=== PATIENT | female | born 1965 ===

== ENCOUNTER 2023-01-24 15:05 | Emergency (ER) | payer MEDICAID, SELFPAY ==
[2023-01-24] VITALS (8 sets, daily range): BP systolic 104–174; BP diastolic 60–91; PULSE 58–111; RESP 12–18; TEMP 36.1–36.8; O2SAT 98–100; BMI 22.7
--- NOTE | 2023-01-24 15:09 | ED_ITS ---
HPI - General Adult General Chief complaint: Vaginal Bleeding Stated complaint: Bleeding alot from private Time Seen by Provider: 01/24/23 16:31 Source: patient Mode of arrival: ambulatory Limitations: no limitations History of Present Illness HPI narrative: This is a 57-year-old female history of hypertension, diabetes presenting to the emergency with heavy vaginal bleeding for the past 3 hours, patient reports that she had intercourse for the 1st time in 60 years and started bleeding heavily, also reporting suprapubic pressure, this is never happened to her before. No known bleeding disorders. Family history of endometrial cancer. Patient is not a smoker. Last Pap smear last urine was within normal limits. Patient reports passing large clots and she can not count the number of pads she has been thr ough within the past hour so. Patient's last meal was this morning where she had something to drink but has not eaten ever since. Patient also reports fatigue, malaise and lightheadedness. Denies chest pain, shortness of breath, nausea, vomiting, abdominal pain, headache, vision changes Related Data Previous Rx's Medication Instructions Recorded morphine 15 mg immediate release 15 mg PO Q6H PRN pain 5 days #10 01/24/23 tablet tabs Allergies Allergy/AdvReac Type Severity Reaction Status Date / Time benztropine Allergy Facial Verified 01/24/23 15:18 Swelling canagliflozin [From Invokana] Allergy Rash Verified 01/24/23 15:18 Penicillins [PCN] Allergy Facial Verified 01/24/23 15:18 Swelling trazodone Allergy Rash Verified 01/24/23 15:11 vancomycin Allergy Rash Verified 01/24/23 15:18 Review of Systems Review of Systems: Constitutional : No Weight loss, No Fever, No Chills, + Fatigue, + Malaise ENT/Mouth : No sore throat, No Rhinorrhea Eyes: No Eye Pain, No Swelling, No Redness Cardiovascular : No Chest Pain, No SOB, No Dyspnea on Exertion, No Orthopnea, No Edema, No Palpitations Respiratory : No Cough, No Sputum, No Wheezing Gastrointestinal : No Nausea, No Vomiting, No Diarrhea, No Constipation, No abdominal Pain, No Hematochezia, No Melena Genitourinary : No Dysuria, No Urinary Frequency, No Hematuria, + heavy vaginal bleeding Musculoskeletal : No joint pain, No Myalgias, No Joint Swelling Skin : No Skin Lesions, No rash Neuro : + Weakness, No Numbness, + Dizziness, No Headache Psych : No Anxiety/Panic, No Depression All other systems reviewed and are negative Yes all other systems are reviewed and are negative [facility] Past Medical History Attestation statement: The following information was validated with the patient. Source: old records reviewed and nursing notes reviewed Social History Social History Smoked in Last 30 Days: No Use of substances other than those prescribed or required for medical reasons: No Advance Directives: Yes Advance Directives on File: No Physical Exam ED Vital Signs: Vital Signs - 24 hr 01/24/23 15:08 01/24/23 17:10 01/24/23 17:14 Temperature 97 F 98.1 F 98.2 F Pulse Rate 111 H 58 58 Respiratory Rate 18 16 16 Blood Pressure 127/91 H 104/60 112/60 Pulse Oximetry 98 Oxygen Delivery Method Room Air 01/24/23 17:26 01/24/23 17:29 01/24/23 17:54 Temperature 98.0 F 98.0 F 97.7 F Pulse Rate 59 58 58 Respiratory Rate 13 13 12 Blood Pressure 136/73 136/73 173/76 H Pulse Oximetry Oxygen Delivery Method 01/24/23 18:21 01/24/23 18:28 Temperature 97.7 F 97.7 F Pulse Rate 59 62 Respiratory Rate 15 17 Blood Pressure 174/85 H 150/81 H Pulse Oximetry 100 Oxygen Delivery Method Room Air BMI result Body Mass Index 22.7 vss Appearance: Alert.? Oriented X3.? No acute distress.? Head: Normocephalic, atraumatic, no step-offs or deformities Eyes: Pupils equal, round and reactive to light.? ENT: Pharynx normal.??External ears normal, TMs normal bilaterally and EAC's normal. No pain with manipulation of external ears bilaterally. No mastoid tenderness. Neck: Normal inspection.? Neck supple.? CVS: Normal heart rate and rhythm.? Pulses normal.? Respiratory: No respiratory distress.? Breath sounds normal.? Abdomen: Soft and nontender.? Skin: Skin warm and dry.? + Pale skin color.? Normal skin turgor.? Sensative exam: + 3 cm linear vaginal laceration at the 3 oclock position heavily bleeding. Large blood clots w/ in vaginal canal. Extremities: No lower extremity edema.? No calf ttp. 5/5 strength to bilateral upper and lower extremities Neuro: Oriented X 3.? No motor deficit.? No sensory deficit. CN 2-12 intact Course Course Course Narrative: RME- 57 year old female presents for evaluation of vaginal bleeding. Patient reports bleeding immediately after sexual intercourse. Reports her first sexual encounter in 6 years. Denies use of blood thinners. Vitals are stable. Patient has had a hysterectomy. Denies pain. Plan to hold off on labs and/or imaging pending physical evaluation. Reevaluation(s) Reevaluation #1: Heavy vaginal bleeding prompted me to call in OBGYN Dr. Marcelino who requested packing in place, 2 units PRBC and to call OR staff in for possible vaginal laceration case. Time: 16:45 Reevaluation #2: Patient's CBC with hemoglobin of 11.3, hematocrit 33.2 likely secondary to acute blood loss, 2nd CBC pending however patient did receive 2 units of packed red blood cells and tolerated them well. Chemistry with no acute findings requiring intervention. Beta hCG negative. COVID negative. Vital signs are stable at this time. Laceration was repaired by Dr. Marcelino at the bedside with local anesthesia lidocaine. Patient tolerated procedure well. Reports no pain at this time, she states she is comfortable. Upon re-evaluation there is no bleeding. She has taken morphine in the past however does not feel like she needs it will discharge her home with a small supply of it if she does experience pain at jeff [facility]. I will have her follow-up with OBGYN within the next 2-3 days. I explained to her she should not have intercourse until cleared by OBGYN. I answered all questions. Consent for vaginal laceration and blood in patient chart. At this time patient to be discharged home with prompt PCP and OBGYN follow-up instructed her to return with any new or worsening symptoms. Time: 18:46 Medical Decision Making Medical Decision Making [facility] Narrative: 1708 57 year old female presents w/ heavy vaginal bleeding X 3 hours. HX of hysterectomy due to menorrhagia. Physical exam significant for + 3 cm linear vaginal laceration at the 3 oclock position heavily bleeding. Large blood clots w/ in vaginal canal. Patient also pale and diaphoretic. Concerns for vaginal laceration likely secondary to vaginal atrophy postmenopausal. Will rule out electrolyte abnormalities, anemia secondary to acute blood loss. Other differentials include endometrial cancer. Plan will do a pelvic exam obtain labs, type and screen, due to patient's presentation the amount of blood loss in such a short period of time 2 units uncross matched blood will be ordered. I did go over risks versus benefits with patient she gave me verbal consent will sign consent as well that will go in patient's chart. Differential Diagnosis Differential Diagnoses: The differential diagnosis associated with the presentation includes Concerns for vaginal laceration likely secondary to vaginal atrophy postmenopausal. Will rule out electrolyte abnormalities, anemia secondary to acute blood loss. Other differentials include endometrial cancer. Admission/Observation Consideration of admission/observation: Escalation of care including admission/observation considered Likely Consult Healthcare Provider Management of the patient was discussed with: Aircraft De Icer Installer (ALICE) Lab Data MDM Lab Attestation statement: I reviewed the patient's lab results. 01/24/23 16:55 01/24/23 16:55 Labs: Lab Results 01/24/23 01/24/23 01/24/23 Range/Units 16:55 16:55 17:00 WBC 9.7 (4.8-10.8) X10*3/uL RBC 3.61 L (4.20-5.50) X10*6/uL Hgb 11.3 L (12.0-16.0) g/dl Hct 33.2 L (37.0-47.0) % MCV 92.0 (80.0-98.0) fL MCH 31.3 (27.0-33.0) pg MCHC 34.0 (31.0-35.0) g/dl RDW 11.9 (11.0-16.0) % Plt Count 241 (160-400) X10*3/uL MPV 9.0 L (9.4-12.3) fL Immature Gran % (Auto) 0.2 (0.0-0.4) % Neut % (Auto) 63.3 (45-73) % Lymph % (Auto) 28.4 (20-40) % Mccormick % (Auto) 6.8 (2-11) % Eos % (Auto) 0.8 (0-4) % Baso % (Auto) 0.5 (0-2) % Lymph # (Auto) 2.8 (1.2-4.9) X10*3/uL Mccormick # (Auto) 0.7 (0.1-1.2) X10*3/uL Eos # (Auto) 0.1 (0.0-0.4) X10*3/uL Baso # (Auto) 0.1 (0.0-0.2) X10*3/uL Abs Immat Gran (auto) 0.02 (0.00-0.03) X10*3/uL Absolute Neuts (auto) 6.2 (2.0-8.3) x10*3/uL Absolute Nucleated RBC 0.000 (0.0-0.012) X10*3/uL Nucleated RBC % (auto) 0.0 (0.0-0.2) /100WBC Sodium 140 (135-145) mmol/L Potassium 4.1 (3.3-5.1) mmol/L Chloride 108 (96-108) mmol/L Carbon Dioxide 21 L (22-29) mmol/L Anion Gap 15 (12-20) BUN 15 (9-16) mg/dL Creatinine 1.00 (0.5-1.4) mg/dL Estim Creat Clear Calc 47.3 Estimated GFR 57 Random Glucose 185 H (60-115) mg/dL Calcium 9.4 (8.4-10.2) mg/dL Magnesium 2.2 (1.6-2.6) mg/dL Total Bilirubin 0.5 (0.0-1.0) mg/dL AST 25 (5-31) U/L ALT 24 (0-31) U/L Alkaline Phosphatase 87 (39-117) U/L Total Protein 6.1 L (6.5-8.0) g/dL Albumin 3.9 (3.5-5.0) g/dL Beta HCG, Quant mIU/mL COVID-19 (SCOTT) (Negative) COVID-19 Clin Com Blood Type O Positive Antibody Screen NEGATIVE Crossmatch See Detail 01/24/23 01/24/23 Range/Units 17:01 17:11 WBC (4.8-10.8) X10*3/uL RBC (4.20-5.50) X10*6/uL Hgb (12.0-16.0) g/dl Hct (37.0-47.0) % MCV (80.0-98.0) fL MCH (27.0-33.0) pg MCHC (31.0-35.0) g/dl RDW (11.0-16.0) % Plt Count (160-400) X10*3/uL MPV (9.4-12.3) fL Immature Gran % (Auto) (0.0-0.4) % Neut % (Auto) (45-73) % Lymph % (Auto) (20-40) % Mccormick % (Auto) (2-11) % Eos % (Auto) (0-4) % Baso % (Auto) (0-2) % Lymph # (Auto) (1.2-4.9) X10*3/uL Mccormick # (Auto) (0.1-1.2) X10*3/uL Eos # (Auto) (0.0-0.4) X10*3/uL Baso # (Auto) (0.0-0.2) X10*3/uL Abs Immat Gran (auto) (0.00-0.03) X10*3/uL Absolute Neuts (auto) (2.0-8.3) x10*3/uL Absolute Nucleated RBC (0.0-0.012) X10*3/uL Nucleated RBC % (auto) (0.0-0.2) /100WBC Sodium (135-145) mmol/L Potassium (3.3-5.1) mmol/L Chloride (96-108) mmol/L Carbon Dioxide (22-29) mmol/L Anion Gap (12-20) BUN (9-16) mg/dL Creatinine (0.5-1.4) mg/dL Estim Creat Clear Calc Estimated GFR Random Glucose (60-115) mg/dL Calcium (8.4-10.2) mg/dL Magnesium (1.6-2.6) mg/dL Total Bilirubin (0.0-1.0) mg/dL AST (5-31) U/L ALT (0-31) U/L Alkaline Phosphatase (39-117) U/L Total Protein (6.5-8.0) g/dL Albumin (3.5-5.0) g/dL Beta HCG, Quant < 2 mIU/mL COVID-19 (SCOTT) Negative (Negative) COVID-19 Clin Com See Note Blood Type Antibody Screen Crossmatch Core Measures AMI core measures followed: Yes Measure exclusions: not indicated Critical Care Time Critical Care Time Critical Care Time: Yes Total Critical Care Time: 45 Attestation: I attest to this time spent taking care of the patient, obtaining history, physical, reviewing labs, imaging, speaking to my attending Discharge Plan Discharge Clinical Impression: Vaginal laceration, Postcoital bleeding Patient Disposition: Home, Self-Care Instructions: Laceration (ED) Additional Instructions: Take your medications as prescribed. If you were prescribed antibiotics today, it is important that you take your medication to their entirety, do not skip any doses, do not finish them early. Follow-up with your primary care provider this week. Please follow-up with your OBGYN within the next 2-3 days. Return to the emergency department with new or worsening symptoms. Such as fevers, chills, chest pain, shortness of breath, nausea, vomiting, dizziness, headache, vision changes, lethargy, bleeding through more than 2 pads an hour, In case of emergency call 911 A narcotic has been sent to your pharmacy please take this as prescribed. Do not take more than the prescribed dose. Narcotic medications can cause addiction. Please do not mix them with alcohol. Do not take them while driving or operating machinery. Do not take them with any other narcotics. Do not share them with friends or family. They can cause constipation. Take them only for severe pain. Prescriptions: New morphine 15 mg tablet 15 mg PO Q6H PRN (Reason: pain) 5 Days Qty: 10 0RF Rx Instructions: Partial Fill upon patient request. Referrals: Physician,Savage Garcia [Primary Care Provider] - 2 days Khoi Marcelino MD [Physician] - 3 days Stand Alone Forms: Work/School Release
--- NOTE | 2023-01-24 16:56 | PC.NURSE ---
pt moved to ED4 for pelvic exam. multiple providers at bedside for exam. pt appears to be having increased vaginal bleeding during exam. suction at bedside. pt appears nauseous, hypotensive. multiple large bore IVs established, blood labs sent. 2 units uncrossed blood released per verbal order md. OB consulted, potential plan to go to OR
[2023-01-24 17:04] LABS: Basophils Absolute Auto 0.1 X10*3/uL (0.0-0.2); Basophils Percent Auto 0.5 % (0-2); Eosinophils Absolute Auto 0.1 X10*3/uL (0.0-0.4); Eosinophils Percent Auto 0.8 % (0-4); Hematocrit 33.2 % (37.0-47.0); Hemoglobin 11.3 g/dl (12.0-16.0); Imm Gran Abs Auto 0.02 X10*3/uL (0.00-0.03); Imm Gran Pct Auto 0.2 % (0.0-0.4); Lymphocytes Absolute Auto 2.8 X10*3/uL (1.2-4.9); Lymphocytes Percent Auto 28.4 % (20-40); MANUAL DIFF FLAG NO; Mean Corpuscular Hemoglobin 31.3 pg (27.0-33.0); Monocytes Absolute Auto 0.7 X10*3/uL (0.1-1.2); Monocytes Percent Auto 6.8 % (2-11); Neutrophils Absolute Auto 6.2 x10*3/uL (2.0-8.3); Neutrophils Percent Auto 63.3 % (45-73); Platelet Count 241 X10*3/uL (160-400); Red Blood Count 3.61 X10*6/uL (4.20-5.50); Red Cell Distribution Width 11.9 % (11.0-16.0); White Blood Count 9.7 X10*3/uL (4.8-10.8)
--- NOTE | 2023-01-24 17:15 | PC.NURSE ---
pt BP improving with IV fluids. bleeding appears better controlled at this time. blood products infusing, pt remains awake and alert. denies pain. nausea improved
[2023-01-24 17:20] LABS: Alanine Aminotransferase 24 U/L (0-31); Albumin Level 3.9 g/dL (3.5-5.0); Alkaline Phosphatase 87 U/L (39-117); Anion Gap 15 (12-20); Aspartate Amino Transferase 25 U/L (5-31); Bilirubin Total 0.5 mg/dL (0.0-1.0); Blood Urea Nitrogen 15 mg/dL (9-16); Calcium 9.4 mg/dL (8.4-10.2); Carbon Dioxide 21 mmol/L (22-29); Chloride 108 mmol/L (96-108); Creatinine Clr Calc Pharmacy 47.3; Estimated Glomerular Filt Rate 57; Glucose Random 185 mg/dL (60-115); Magnesium 2.2 mg/dL (1.6-2.6); Potassium 4.1 mmol/L (3.3-5.1); Sodium 140 mmol/L (135-145); Total Protein 6.1 g/dL (6.5-8.0)
[2023-01-24 17:24] LABS: COVID-19 Test Negative (Negative); IDNOW Serial# 08D9AD1C
--- NOTE | 2023-01-24 17:37 | MHC.EDTECH ---
pt currently getting stitches d/t acute bleeding. will obtain second type and screen once sutures completed. rn aware
[2023-01-24 17:42] LABS: HCG Quantitative < 2 mIU/mL
--- NOTE | 2023-01-24 18:28 | P.CONOB_ITS ---
COMPUTER SYSTEMS SECURITY ADMINISTRATOR - CN: HPI Data of Consult Consult date: 01/24/23 Primary Care Provider: Unknown Physician Consult Narrative Narrative: I was consulted on Kimberly Schulz who is a 57 year old female presented emergency room 3 hours post intercourse with vaginal bleeding. The patient has been absentinant over the last 6 years. No other associated symptoms no nausea or vomiting no GI or symptoms cc:: CC: OB [facility] Social History Social History Smoked in Last 30 Days: No Use of substances other than those prescribed or required for medical reasons: No Advance Directives: Yes Advance Directives on File: No Meds Allergies Allergy/AdvReac Type Severity Reaction Status Date / Time benztropine Allergy Facial Verified 01/24/23 15:18 Swelling canagliflozin [From Invokana] Allergy Rash Verified 01/24/23 15:18 Penicillins [PCN] Allergy Facial Verified 01/24/23 15:18 Swelling trazodone Allergy Rash Verified 01/24/23 15:11 vancomycin Allergy Rash Verified 01/24/23 15:18 COMPUTER SYSTEMS SECURITY ADMINISTRATOR Physical Exam Vitals Vital signs: Temp Pulse Resp BP Pulse Ox O2 Del Method 97.7 F 59 15 174/85 H 100 Room Air 01/24/23 18:21 01/24/23 18:21 01/24/23 18:21 01/24/23 18:21 01/24/23 18:21 01/24/23 18:21 BMI result Body Mass Index 22.7 Abdomen Auscultation/Inspection/Palpation: Normal bowel sounds, Soft, Non-distended and No tenderness Female Genitalia (Pelvic) Vulva: No lesions Cervix: Cervix Surgically Absent Uterus: Uterus surgically absent Additional Comments: 5 cm laceration bleeding at the vaginal apex COMPUTER SYSTEMS SECURITY ADMINISTRATOR - Results Labs 01/24/23 16:55 01/24/23 16:55 Labs: Short CBC 01/24/23 Range/Units 16:55 WBC 9.7 (4.8-10.8) X10*3/uL Hgb 11.3 L (12.0-16.0) g/dl Hct 33.2 L (37.0-47.0) % Plt Count 241 (160-400) X10*3/uL BMP 01/24/23 16:55 Sodium 140 Potassium 4.1 Chloride 108 Carbon Dioxide 21 L BUN 15 Creatinine 1.00 Calcium 9.4 Liver Function 01/24/23 Range/Units 16:55 Total Bilirubin 0.5 (0.0-1.0) mg/dL AST 25 (5-31) U/L ALT 24 (0-31) U/L Alkaline Phosphatase 87 (39-117) U/L Albumin 3.9 (3.5-5.0) g/dL Antibody Screen Antibody Screen NEGATIVE 01/24/23 17:00 Assessment and Plan (1) Vaginal laceration: Status: Acute Plan Discussed with the patient the finding on physical exam, a bleeding 5 cm vaginal laceration, I recommended repair of vaginal laceration, discussed with the patient the risks and benefits, risks discussed with the patient include but not limited to: Bleeding, infection risk of injury to the bladder, bowel , ureter, blood vessel possible need for blood transfusion, chronic painful intercourse, the patient gave a verbal consent . Speculum was inserted 10 cc of lidocaine 2% were injected at the laceration and using 3-0 monofilament absorbable sutures the laceration was closed in a running interlocking fashion. Patient tolerated the procedure well, hemostasis verified at the the procedure Instructions given the patient to call in case of heavy bleeding, fever above 100.4, nausea vomiting and follow-up in the outpatient office within 2 weeks All questions answered, the patient verbalized understanding Time Spent With Patient Time: Total time managing care of this patient today ____ minutes.
[2023-01-24 18:33] LABS: MANUAL DIFF FLAG NO
--- NOTE | 2023-01-24 18:38 | PC.NURSE ---
blood products finished infusing. vaginal laceration closed with sutures by Dr. Marcelino at bedside. awaiting repeat cbc. pt remains without pain. partner at bedside. vss. wctm
[2023-01-24 18:45] LABS: Basophils Absolute Auto 0.1 X10*3/uL (0.0-0.2); Basophils Percent Auto 0.4 % (0-2); Eosinophils Absolute Auto 0.1 X10*3/uL (0.0-0.4); Eosinophils Percent Auto 0.4 % (0-4); Hematocrit 38.2 % (37.0-47.0); Hemoglobin 13.2 g/dl (12.0-16.0); Imm Gran Abs Auto 0.06 X10*3/uL (0.00-0.03); Imm Gran Pct Auto 0.3 % (0.0-0.4); Lymphocytes Absolute Auto 1.3 X10*3/uL (1.2-4.9); Lymphocytes Percent Auto 7.1 % (20-40); Mean Corpuscular HGB Conc 34.6 g/dl (31.0-35.0); Mean Corpuscular Volume 89.7 fL (80.0-98.0); Mean Platelet Volume 9.8 fL (9.4-12.3); Monocytes Absolute Auto 1.2 X10*3/uL (0.1-1.2); Monocytes Percent Auto 6.2 % (2-11); Neutrophils Absolute Auto 16.2 x10*3/uL (2.0-8.3); Neutrophils Percent Auto 85.6 % (45-73); Platelet Count 172 X10*3/uL (160-400); Red Blood Count 4.26 X10*6/uL (4.20-5.50); Red Cell Distribution Width 13.1 % (11.0-16.0); White Blood Count 18.9 X10*3/uL (4.8-10.8)
== END 2023-01-24 19:45 | disposition home or self-care (01) ==
PROVIDERS: Physician Assistant; Emergency Provider Internal Medicine
DX: S31.41XA Laceration without foreign body of vagina and vulva, initial encounter (principal); X58.XXXA Exposure to other specified factors, initial encounter; N93.0 Postcoital and contact bleeding; N93.9 Abnormal uterine and vaginal bleeding, unspecified; E11.9 Type 2 diabetes mellitus without complications; I10 Essential (primary) hypertension; Y93.89 Activity, other specified; Y92.019 Unspecified place in single-family (private) house as the place of occurrence of the external cause; Y99.9 Unspecified external cause status
CPT/HCPCS: 36415; 36430; 80053; 83735; 84702; 85025; 86850; 86900; 86901; 86920; 87635; 99284; 99285; P9016